=== PATIENT | female | born 1955 ===

== ENCOUNTER 2016-08-09 22:09 | Emergency (ER) | payer MEDICARE ==
[2016-08-09 22:10] VITALS: BMI 32.8
[2016-08-09 22:36] VITALS: BP 163/93; PULSE 80; RESP 18; TEMP 98; O2SAT 98
--- NOTE | 2016-08-09 23:17 | ED PDOC ---
HPI: General Adult Time Seen by Provider: 08/09/16 22:50 Chief Complaint (Nursing): ENT Problem Chief Complaint (Provider): R sided facial pain History Per: Patient Additional Complaint(s): Pt. states for the past several months she's had intermittent sinus infections which often occur only the R side of the face. For the past 2 weeks she's had R sided facial pain with nasal congestion. Pt. states she is under the care of Dr. Ngo, ENT, who saw her 2 weeks ago and was prescribed steroids without any relief. Reports no antibiotics were given for this episode. States that she's been prescribed multiple antibiotics in the past for her sinus infections and azithromycin works the best for her. Denies fever, trauma, numbness, tingling, visual changes. Past Medical History Reviewed: Historical Data, Nursing Documentation, Vital Signs Vital Signs: Last Vital Signs Temp 98 F 08/09/16 22:32 Pulse 80 08/09/16 22:32 Resp 18 08/09/16 22:32 BP 163/93 H 08/09/16 22:32 Pulse Ox 98 08/09/16 22:32 - Medical History PMH: Anxiety, Depression, HTN, Hypercholesterolemia, Hyperlipidemia Denies: Chronic Kidney Disease - Family History Family History: States: No Known Family Hx - Home Medications Home Medications: Ambulatory Orders Medication Instructions Recorded Carvedilol [Coreg] 25 mg PO BID 11/23/14 Sertraline [Zoloft] 100 mg PO DAILY 11/23/14 clonazePAM [Klonopin] 1 mg PO HS 11/23/14 hydroCHLOROthiazide [Microzide] 12.5 mg PO DAILY 11/23/14 Cholecalciferol [Vitamin D 1000 IU] 1,000 iu PO DAILY 11/24/14 Aspirin [Ecotrin] 81 mg PO DAILY 03/13/16 Mirtazapine 15 mg PO DAILY 03/13/16 Pravastatin Sodium 40 mg PO DAILY 03/13/16 Azithromycin [Zithromax] 250 mg PO DAILY #6 tab 08/09/16 Loratadine [Claritin] 10 mg PO DAILY PRN #30 tab 08/09/16 - Allergies Allergies/Adverse Reactions: Allergies Allergy/AdvReac Type Severity Reaction Status Date / Time promethazine HCl Allergy SHORTNESS Verified 03/13/16 10:06 [From Phenergan] OF BREATH oxycodone HCl [From Percocet] AdvReac HALLUCINATI Verified 03/13/16 10:06 ON Review of Systems ROS Statement: Except As Marked, All Systems Reviewed And Found Negative ENT: Positive for: Nose Discharge Physical Exam - Physical Exam Appears: Positive for: Well, Non-toxic, No Acute Distress Skin: Positive for: Normal Color, Warm. Negative for: Rash Eye Exam: Positive for: EOMI, Normal appearance, PERRL ENT: Positive for: TM Is/Are (WNL b/l), Sinus Pain/Drainage (R sided maxillary tenderness), Nasal Congestion. Negative for: Pharyngeal Erythema, Tonsillar Exudate, Tonsillar Swelling Neurologic/Psych: Positive for: Alert, Oriented. Negative for: Aphasia, Facial Droop - ECG O2 Sat by Pulse Oximetry: 98 - Progress ED Course And Treament: Pt had CT sinuses done today but was not read yet. Naproxen PO given. Disposition - Clinical Impression Clinical Impression: Sinusitis - Patient ED Disposition Is Patient to be Admitted: No - Disposition Referrals: Saúl Ngo MD [Staff Provider] - Disposition: Routine/Home Disposition Time: 23:19 Condition: STABLE Prescriptions: Loratadine [Claritin] 10 mg PO DAILY PRN #30 tab PRN Reason: Nasal Congestion Azithromycin [Zithromax] 250 mg PO DAILY #6 tab Instructions: Sinusitis (ED)
[2016-08-09] MEDS: Naproxen 500 MG TAB PO ONE (23:30)
== END 2016-08-09 23:59 | disposition home or self-care (01) ==
LOC: H.ER 22:09
DX: J32.9 Chronic sinusitis, unspecified (principal); E78.00 Pure hypercholesterolemia, unspecified; F41.9 Anxiety disorder, unspecified; I10 Essential (primary) hypertension; Z79.82 Long term (current) use of aspirin